=== PATIENT | male | born 1930 | race Hispanic/Latino ===

== ENCOUNTER 2019-02-15 06:04 | Observation (INO) | payer OTHER ==
[2019-02-13 17:02] LABS: BASOPHILS % (AUTO) 0.6 % (0.0-5.0); HEMATOCRIT 32.5 % (42-54); LYMPHOCYTES % (AUTO) 17.1 % (21.0-51.0); MEAN CORPUSCULAR HEMOGLOBIN 33.3 pg (27.0-33.0); MEAN CORPUSCULAR HGB CONC 33.7 g/dL (32.0-36.0); MEAN CORPUSCULAR VOLUME 98.7 fL (79-99); MONOCYTES % (AUTO) 6.9 % (3.0-13.0); NEUTROPHILS % (AUTO) 72.4 % (40.0-77.0); PLATELET COUNT (AUTO) 250 K/uL (130-400); RED BLOOD CELL COUNT(AUTO) 3.29 MIL/uL (4.50-6.20); RED CELL DISTRIBUTION WIDTH 15.6 % (11.0-15.5); WHITE BLOOD COUNT (AUTO) 6.9 K/uL (4.8-10.8)
[2019-02-13 17:12] LABS: POTASSIUM 5.1 mmol/L (3.5-5.1)
[2019-02-13 17:14] LABS: INR 0.95 (0.85-1.15); PARTIAL THROMBOPLASTIN TIME 27.3 SEC (26.3-35.5)
[2019-02-13 17:34] VITALS: BP 150/52
[2019-02-15] VITALS (10 sets, daily range): BP systolic 116–188; BP diastolic 59–82
[~2019-02-15] VITALS: Ht 157.5 cm; Wt 61.9 kg
[~2019-02-15 06:04] MED LIST: ICOS1CAP PO; MEMA28CA5 PO; METF-444 PO; METF-446 PO; MIRTAZAPINE TD; NIFE30TA98 PO; OLME20TA22 PO; ROSU20TA31 PO; SODIUM CHLORIDE 0.9% 1000ML 1,000 ML IV SCH; TAMS-1 PO
--- NOTE | 2019-02-15 06:10 | NUR ---
PATIENT ARRIVED PATIENT ARRIVED TO DAY PATIENT ACCOMPANIED BY SPOUSE. PATIENT [id number], CONFUSED/FORGETFUL AT TIMES (HX OF DEMENTIA). PROCEDURE CONFIRMED/VERIFIED WITH PATIENT AND PATIENT'S SPOUSE. HOSPITAL ROUTINE EXPLAINED TO BOTH PATIENT AND SPOUSE. PATIENT USES WHEELCHAIR DUE TO BLE WEAKNESS. PATIENT ABLE TO TRANSFER FROM CHAIR TO BED UNASSISTED. PATIENT DENIES ANY PAIN AT THIS TIME, RESPIRATIONS UNLABORED, VITAL SIGNS STABLE.
[2019-02-15] MEDS ORDERED: CEFAZOLIN SODIUM 1 GM VIAL ONE (07:16)
[2019-02-15] MEDS ORDERED: IOHEXOL-350 50ML VIAL IV ONE (07:16)
[2019-02-15] MEDS ORDERED: BUPIVACAINE/PF 0.25% 30ML VIAL IJ ONE (07:16)
[2019-02-15] MEDS ORDERED: MIDAZOLAM HCL 1 MG/ML 2ML VIAL ONE ×2 (07:17→11:11)
[2019-02-15] MEDS ORDERED: MEPERIDINE-PF 25 MG/ML SYG ONE ×2 (07:17→11:11)
[2019-02-15] MEDS ORDERED: LIDOCAINE HCL 1% MDV 50ML VIAL ONE (07:18)
[2019-02-15] MEDS ORDERED: MIRT15TA6 PO (07:36)
[2019-02-15] MEDS ORDERED: BIMA12.5OS OU (07:36)
[2019-02-15] MEDS ORDERED: IPRA3AMP24 IH (07:36)
[2019-02-15] MEDS ORDERED: RIVA9.5T TD (07:37)
[2019-02-15] MEDS ORDERED: ONDANSETRON HCL 4 MG/2 ML VIAL IV PRN (12:15)
[2019-02-15] MEDS ORDERED: ACETAMINOPHEN-CODEINE 300/30MG TAB PO PRN ×2 (12:15)
[2019-02-15] MEDS ORDERED: GLUCAGON 1MG KIT 1 MG ML IM PRN (12:15)
[2019-02-15] MEDS ORDERED: DEXTROSE 50%-WATER 50 ML DISP.SYRIN IV PRN (12:15)
--- NOTE | 2019-02-15 14:56 | NUR ---
1 CIG/DAY Addendum: 02/15/[address] at [address] Amended: Links added.
[2019-02-15] MEDS: INSULIN HUMULIN R 100 UNIT/ML 3ML SQ SCH ×2 (16:30→21:00)
[2019-02-15] MEDS ORDERED: IPRATROPIUM/ALBUTEROL SULFATE 3 ML SOLUTION IH ONE (18:05)
[2019-02-15] MEDS: CEFAZOLIN SODIUM 1 GM VIAL IVP SCH (18:45)
[2019-02-15] MEDS ORDERED: MIRTAZAPINE 15 MG TABLET PO SCH (21:00)
[2019-02-15] MEDS ORDERED: MEMANTINE 28 MG PO SCH (21:00)
[2019-02-15] MEDS ORDERED: LATANOPROST 2.5 ML DROPS OU SCH (21:00)
[2019-02-15] MEDS ORDERED: IPRATROPIUM/ALBUTEROL SULFATE 3 ML SOLUTION IH SCH (21:00)
[2019-02-15] MEDS ORDERED: METFORMIN HCL 500 MG TABLET PO SCH (21:00)
[2019-02-15] MEDS ORDERED: ATORVASTATIN CALCIUM 40 MG TABLET PO SCH (21:00)
[2019-02-16] MEDS: CEFAZOLIN SODIUM 1 GM VIAL IVP SCH (03:12)
[2019-02-16 04:02] VITALS: BP 137/79
[2019-02-16] MEDS: INSULIN HUMULIN R 100 UNIT/ML 3ML SQ SCH (06:59)
[2019-02-16 07:55] VITALS: BP 142/75
[2019-02-16] MEDS ORDERED: METFORMIN HCL 500 MG TABLET PO SCH (08:00)
[2019-02-16] MEDS ORDERED: **HM** VASCEPA 1GM PO SCH (08:00)
[2019-02-16] MEDS ORDERED: TAMSULOSIN HCL 0.4 MG CAP.ER.24H PO SCH (09:00)
[2019-02-16] MEDS ORDERED: NIFEDIPINE ER 30 MG TAB PO SCH (09:00)
[2019-02-16] MEDS ORDERED: EXELON TD SCH (09:00)
[2019-02-16] MEDS ORDERED: LOSARTAN 100 MG TABLET PO SCH (09:00)
[2019-02-16] MEDS ORDERED: DOXY100T2 PO (11:47)
== END 2019-02-16 12:20 | disposition home or self-care (01) ==
LOC: DAH 06:04 → DAHIP 06:05 → 2AH 12:35
PROVIDERS: ADMIT Internal Medicine; ATTEND Internal Medicine
DX: R00.1 Bradycardia, unspecified (principal); R42 Dizziness and giddiness; I44.1 Atrioventricular block, second degree; I10 Essential (primary) hypertension; E78.5 Hyperlipidemia, unspecified; K21.9 Gastro-esophageal reflux disease without esophagitis; Z98.49 Cataract extraction status, unspecified eye; Z95.0 Presence of cardiac pacemaker; Z79.84 Long term (current) use of oral hypoglycemic drugs; Z79.899 Other long term (current) drug therapy; Z88.8 Allergy status to other drugs, medicaments and biological substances
CPT/HCPCS: 33208; 36415; 71045; 80048; 82948 ×4; 85025; 85610; 85730; 93005; 94640 ×2; 94664; 96361; 96374; 96376; A4215; A4216; A4222; A4223 ×3; A4606; A4663; C1785; C1894; C1898 ×2; G0378 ×23; J0690 ×3; J2175 ×2; J2250 ×2; J3490 ×2; J7030; 99156; 99157; Q9967

== ENCOUNTER → 2019-03-24 | Outpatient (CLI) | payer OTHER, MEDICARE ==
[~2019-03-24] MED LIST changes: +BIMA12.5OS OU; +DOXY100T2 PO; +IPRA3AMP24 IH; +MIRT15TA6 PO; -MIRTAZAPINE TD; +RIVA9.5T TD; -SODIUM CHLORIDE 0.9% 1000ML 1,000 ML IV SCH
== END | disposition home or self-care (01) ==
LOC: RAH 11:58
PROVIDERS: ATTEND Internal Medicine
DX: S42.035A Nondisplaced fracture of lateral end of left clavicle, initial encounter for closed fracture (principal); M11.261 Other chondrocalcinosis, right knee; I51.7 Cardiomegaly; Q25.46 Tortuous aortic arch; I70.0 Atherosclerosis of aorta; I50.22 Chronic systolic (congestive) heart failure; X58.XXXA Exposure to other specified factors, initial encounter; Y93.89 Activity, other specified; Y92.89 Other specified places as the place of occurrence of the external cause; Y99.8 Other external cause status; Z95.0 Presence of cardiac pacemaker
CPT/HCPCS: 71046; 73030; 73560